=== PATIENT | male | born 1950 | race American Indian/Alaskan Native ===

== ENCOUNTER 2019-08-03 16:38 | Emergency (ER) | payer MEDICARE ==
--- NOTE | 2019-08-03 17:41 | XRay Report ---
LEFT HAND 3 VIEWS INDICATION / CLINICAL INFORMATION: MAIN: nail gun to hand; Pt reports having nail gun go through left hand, puncture wound noted to left hand, bleeding controlled. . COMPARISON: None available. FINDINGS: There is soft tissue deformity of the tip of the ring finger with lucency seen in the tuft of the rin g finger. A ring is present on the little finger. No other significant abnormality. Other than the ri ng, no radiopaque foreign object is seen Signer Name: Eugene Man MD FACPrince Signed: 08/03/2019 5:37 PM Workstation Name: [id number]
[2019-08-03] MEDS ORDERED: TETANUS,DIPH,PERTUSS(ACELL) VACCINE 0.5 ML SYRINGE IM ONE (20:06)
--- NOTE | 2019-08-03 20:59 | Emergency Department Report ---
- General Chief Complaint: Extremity Injury, Upper Stated Complaint: HAND WITH NAIL IN IT Time Seen by Provider: 08/03/19 19:38 Source: patient Mode of arrival: Ambulatory Limitations: No Limitations - History of Present Illness Initial Comments: Patient is a 69-year-old male who presents emergency room with complaints of a puncture wound to the left hand that occurred just prior to arrival. He states he was doing some framing work on a house and used a nail gun which punctured his hand. He states that it did not go all the way through. He states initially there was bleeding but it self resolved after he held pressure. He is able to move the thumb and hand with some discomfort. He denies any numbness or weakness. He is right-hand dominant. He is unsure of his last tetanus immunization. He has a past medical history of DM, HTN, HLD, prostate cancer. He denies any allergies to medications. - Related Data Previous Rx's Medication Instructions Recorded Last Taken Type Acetaminophen [Tylenol] 650 mg PO Q8HR PRN #20 capsule 08/03/19 Unknown Rx cephALEXin [Keflex] 500 mg PO QID 7 Days #56 capsule 08/03/19 Unknown Rx traMADoL [Ultram 50 MG tab] 50 mg PO Q6HR PRN #7 tablet 08/03/19 Unknown Rx Allergies Allergy/AdvReac Type Severity Reaction Status Date / Time No Known Allergies Allergy Verified 08/03/19 16:46 ED Review of Systems ROS: Stated complaint: HAND WITH NAIL IN IT Other details as noted in HPI Comment: All other systems reviewed and negative ED Past Medical Hx - Past Medical History Previous Medical History?: Yes Hx Hypertension: Yes Hx Diabetes: Yes Hx of Cancer: Yes (prostate) Additional medical history: high cholesterol - Surgical History Past Surgical History?: Yes Additional Surgical History: prostate, back - Social History Smoking Status: Never Smoker Substance Use Type: None - Medications Home Medications: Home Medications Medication Instructions Recorded Confirmed Last Taken Type Acetaminophen [Tylenol] 650 mg PO Q8HR PRN #20 capsule 08/03/19 Unknown Rx cephALEXin [Keflex] 500 mg PO QID 7 Days #56 capsule 08/03/19 Unknown Rx traMADoL [Ultram 50 MG tab] 50 mg PO Q6HR PRN #7 tablet 08/03/19 Unknown Rx ED Physical Exam - General Limitations: No Limitations General appearance: alert, in no apparent distress - Head Head exam: Present: atraumatic, normocephalic - Eye Eye exam: Present: normal appearance - ENT ENT exam: Present: mucous membranes moist - Extremities Exam Extremities exam: Present: other (0.5 cm puncture wound present to the dorsal surface of the left hand near the snuffbox region, there is no bleeding present, no visualized foreign body, there is edema and ttp in this region, pt has full thumb flexion and extension, can push against weight, but exhibits some difficulty with touching his thumb to his pinky he states it is uncomfortable, pt is neurovasculalry intact, the puncture wound is not through and through) - Neurological Exam Neurological exam: Present: alert, oriented X3 - Psychiatric Psychiatric exam: Present: normal affect, normal mood - Skin Skin exam: Present: warm, dry ED Course Vital Signs 08/03/19 08/03/19 16:42 21:20 Temperature 97.8 F Pulse Rate 70 60 Respiratory 18 18 Rate Blood Pressure 154/92 Blood Pressure 164/89 [Left] O2 Sat by Pulse 96 98 Oximetry ED Medical Decision Making - Radiology Data Radiology results: report reviewed LEFT HAND 3 VIEWS INDICATION / CLINICAL INFORMATION: MAIN: nail gun to hand; Pt reports having nail gun go through left hand, puncture wound noted to left hand, bleeding controlled. . COMPARISON: None available. FINDINGS: There is soft tissue deformity of the tip of the ring finger with lucency seen in the tuft of the ring finger. A ring is present on the little finger. No other significant abnormality. Other than the ring, no radiopaque foreign object is seen Signer Name: Eugene Man MD FACR Signed: 08/03/2019 5:37 PM Workstation Name: [id number] Transcribed By: MS Dictated By: Eugene Man MD Electronically Authenticated By: Eugene Man MD Signed Date/Time: 08/03/191736 DD/ 34 TD/TT: - Medical Decision Making Patient is a 69-year-old male who presents emergency room with complaints of a puncture wound to the left hand that occurred just prior to arrival. He states he was doing some framing work on a house and used a nail gun which punctured his hand. He states that it did not go all the way through. He states initially there was bleeding but it self resolved after he held pressure. He is able to move the thumb and hand with some discomfort. He denies any numbness or weakness. He is right-hand dominant. He is unsure of his last tetanus immunization. He has a past medical history of DM, HTN, HLD, prostate cancer. He denies any allergies to medications. Vitals are stable. On exam: 0.5 cm puncture wound present to the dorsal surface of the left hand near the snuffbox region, there is no bleeding present, no visualized foreign body, there is edema and ttp in this region, pt has full thumb flexion and extension, can push against weight, but exhibits some difficulty with touching his thumb to his pinky he states it is uncomfortable, pt is neurovasculalry intact, the puncture wound is not through and through. XR left hand: There is soft tissue deformity of the tip of the ring finger with lucency seen in the tuft of the ring finger. A ring is present on the little finger. No other significant abnormality. Other than the ring, no radiopaque foreign object is seen. The soft tissue deformity on the right ring finger and tuft seen on XR is chronic in nature and not related to this injury from today. Secondary to a puncture wound being in the region of the snuffbox and patient having difficulty with thumb opposition, patient placed in thumb spica splint. Wound irrigated with saline and thoroughly scrubbed with Betadine, sterile dressing applied. Patient given tetanus immunization. Will have patient follow-up with orthopedic doctor in the next 2 to 3 days. Patient given prescription for Keflex and tramadol and Tylenol. advised pt Please take medication as prescribed. Do not drive or operate heavy machinery while taking pain medication. Please keep puncture wound clean, dry, covered. May wash with soap and water and immediately dry. No hot tub, no pool, no soaking in water. Please follow-up with an orthopedic doctor, it is very important that you follow-up with an orthopedic doctor to assess for tendon/ligament damage. You must follow-up to avoid permanent damage or disability. Please keep splint on until you have been cleared by orthopedic doctor. Return to emergency room immediately for any new or worsening symptoms or any. Critical care attestation.: If time is entered above; I have spent that time in minutes in the direct care of this critically ill patient, excluding procedure time. ED Disposition Clinical Impression: Puncture wound of left hand Qualifiers: Encounter type: initial encounter Foreign body presence: without foreign body Qualified Code(s): S61.432A - Puncture wound without foreign body of left hand, initial encounter Disposition: TO HOME OR SELFCARE Is pt being admited?: No Does the pt Need Aspirin: No Condition: Stable Instructions: Puncture Wound (ED) Additional Instructions: Please take medication as prescribed. Do not drive or operate heavy machinery while taking pain medication. Please keep puncture wound clean, dry, covered. May wash with soap and water and immediately dry. No hot tub, no pool, no soaking in water. Please follow-up with an orthopedic doctor, it is very important that you follow-up with an orthopedic doctor to assess for tendon/ligament damage. You must follow-up to avoid permanent damage or disability. Please keep splint on until you have been cleared by orthopedic doctor. Return to emergency room immediately for any new or worsening symptoms or any. Prescriptions: cephALEXin [Keflex] 500 mg PO QID 7 Days #56 capsule Acetaminophen [Tylenol] 650 mg PO Q8HR PRN #20 capsule PRN Reason: Pain, Moderate (4-6) traMADoL [Ultram 50 MG tab] 50 mg PO Q6HR PRN #7 tablet PRN Reason: Pain , Severe (7-10) Referrals: CHICO QUESADA MD [Staff Physician] - 3-5 Days [facility] [Provider Group] - 3-5 Days Time of Disposition: 20:59 Print Language: MALAWIAN
[2019-08-03 21:48] VITALS: BP 164/89
== END 2019-08-03 21:20 | disposition home or self-care (01) ==
LOC: ED 16:38
DX: S61.432A Puncture wound without foreign body of left hand, initial encounter (principal); I10 Essential (primary) hypertension; E11.9 Type 2 diabetes mellitus without complications; E78.00 Pure hypercholesterolemia, unspecified; Z85.46 Personal history of malignant neoplasm of prostate; Z98.890 Other specified postprocedural states; Z79.899 Other long term (current) drug therapy; W29.4XXA Contact with nail gun, initial encounter; Y93.89 Activity, other specified; Y92.009 Unspecified place in unspecified non-institutional (private) residence as the place of occurrence of the external cause; Y99.8 Other external cause status
CPT/HCPCS: 90471; 90715; 99283; 99284